=== PATIENT | female | born 1980 | race Caucasian/White ===

== ENCOUNTER 2018-02-11 17:19 | Emergency (ER) | payer BC ==
[~2018-02-11] VITALS: Ht 149.9 cm; Wt 51.0 kg
[2018-02-11 18:36] VITALS: BP 118/80
== END 2018-02-11 19:18 | disposition home or self-care (01) ==
LOC: ER 17:58
DX: T81.4XXA Infection following a procedure, initial encounter (principal); N61.0 Mastitis without abscess
CPT/HCPCS: 99283